=== PATIENT | male | born 1960 | race Caucasian/White ===

== ENCOUNTER → 2024-10-05 | Outpatient (CLI) | payer OTHER, SELFPAY ==
--- NOTE | 2024-10-05 10:46 | XR_ITS ---
Examination: Bone densitometry Date and time of exam:October 05, 2024 1117 hours INDICATIONS: 64-year-old male with diagnosis age related osteoporosis, history humerus fracture Technique: Lumbar spine and hip total bone mineralization values of an calculated. Peak reference and age match control results have been displayed. Findings: Lumbar spine total bone mineralization is1.125 gm/cm2. This is 0.3 standard deviations above peak reference. This is 1.0 standard deviations above age-matched controls. Hip total bone mineralization is 1.012 gm/cm2 This is 0.1 standard deviations below peak reference. This is 0.3 standard deviations above age-matched controls Impression: There is normal mineralization based on lumbar spine measurements. There is osteopenia based on hip measurements
== END | disposition home or self-care (01) ==
PROVIDERS: PCP Family Medicine; Referring Provider Family Medicine; Visit Provider Family Medicine
DX: M85.88 Other specified disorders of bone density and structure, other site (principal)
CPT/HCPCS: 77080